=== PATIENT | female | born 1975 | race Caucasian/White ===

== ENCOUNTER → 2017-03-24 | Outpatient (CLI) | payer BC ==
[~2017-03-24] MED LIST: TOPAMAX200 MG PO
[2017-03-24 09:47] LABS: BUN/CREATININE RATIO 20 (0-10)
== END ==
LOC: LAB 08:48
PROVIDERS: Internal Medicine Cardiovascular Disease
DX: I47.1 Supraventricular tachycardia (principal); I47.2 Ventricular tachycardia; R00.2 Palpitations; E87.6 Hypokalemia; I10 Essential (primary) hypertension; R07.9 Chest pain, unspecified
CPT/HCPCS: 36415; 80053; 80061; 84439; 84443; 84481

== ENCOUNTER → 2021-05-28 | Outpatient (CLI) | payer BC | LOC: MAMO 07:50 | DX: Z12.31 Encounter for screening mammogram for malignant neoplasm of breast (principal); Z13.820 Encounter for screening for osteoporosis | CPT/HCPCS: 77063; 77067; 77080 ==

== ENCOUNTER → 2021-10-15 | Outpatient (CLI) | payer BC | LOC: KOH-I 11:51 | DX: M25.561 Pain in right knee (principal) | CPT/HCPCS: 73564 ==